=== PATIENT | male | born 1945 | race Caucasian/White ===

== ENCOUNTER 2024-02-12 19:23 | Inpatient (IN) | payer MEDICARE, MEDICAID ==
[~2024-02-12] VITALS: Ht 185.4 cm; Wt 62.8 kg
[2024-02-12] MEDS: KETOROLAC TROMETHAMINE 30 MG/ML VIAL IVP ONE (20:36)
[2024-02-12] MEDS: ONDANSETRON HCL 4 MG/2 ML VIAL IVP ONE (20:36)
[2024-02-12] MEDS: SODIUM CHLORIDE 0.9% 1,000 ML IV ONE (20:36)
[2024-02-12] MEDS: FAMOTIDINE 20 MG/2 ML VIAL IVP ONE (20:36)
[2024-02-12 20:59] LABS: BASOPHILS % (AUTO) 0.6 % (0.0-2.0); EOSINOPHILS % (AUTO) 0.1 % (1.0-6.0); HEMATOCRIT 43.5 % (41-53); HEMOGLOBIN 14.5 g/dL (13.5-17.5); LYMPHOCYTES # (AUTO) 1.4 K/uL (1.0-4.8); LYMPHOCYTES % (AUTO) 7.7 % (22.0-44.0); MEAN CORPUSCULAR HEMOGLOBIN 30.2 pg (26.0-34.0); MEAN CORPUSCULAR HGB CONC 33.3 G/dL (31.0-37.0); MEAN CORPUSCULAR VOLUME 91 fL (80-100); MONOCYTES # (AUTO) 1.3 K/uL (0.1-1.0); MONOCYTES % (AUTO) 7.2 % (2.0-9.0); NEUTROPHILS # (AUTO) 15.4 K/uL (1.8-7.7); NEUTROPHILS % (AUTO) 84.4 % (40.0-70.0); PLATELET COUNT (AUTO) 429 K/uL (150-450); RED CELL DISTRIBUTION WIDTH 13.6 % (11.5-14.5); WHITE BLOOD COUNT (AUTO) 18.3 K/uL (4.5-11.0)
[2024-02-12 21:01] LABS: CALCIUM, TOTAL 9.6 mg/dL (8.8-10.5); CREATININE 1.6 mg/dL (0.60-1.30); POTASSIUM 4.2 mmol/L (3.5-5.1)
[2024-02-12 21:06] LABS: ALANINE AMINOTRANSFERASE 112 U/L (12-78); ALBUMIN 2.7 g/dL (3.4-5.0); ALKALINE PHOSPHATASE 104 U/L (46-116); ASPARTATE AMINOTRANSFERASE 67 U/L (15-37); BILIRUBIN,TOTAL 0.9 mg/dL (0.1-1.0); TOTAL PROTEIN, SERUM 7.8 g/dL (6.4-8.2)
[2024-02-12 21:07] LABS: MAGNESIUM 2.7 mg/dL (1.80-2.40); PHOSPHORUS 4.5 mg/dL (2.5-4.9)
[2024-02-12 21:08] LABS: TROPONIN I-HIGH SENSITIVITY 16 ng/L (<76)
[2024-02-12] MEDS ORDERED: SODIUM CHLORIDE 0.9% 100 ML ONE (21:10)
[2024-02-12] MEDS ORDERED: IOHEXOL 350 MG/ML 100 ML VIAL ONE (21:10)
[2024-02-12 21:17] LABS: B-TYPE NATRIURETIC PEPTIDE 80 pg/mL (0-100)
[2024-02-12 21:17] LABS: COVID AG,FIA SOURCE NASAL SWAB
[2024-02-12] MEDS ORDERED: 0.9% SODIUM CHLORIDE 10 ML SYRINGE IVP PRN (21:30)
[2024-02-12 21:41] LABS: SARS-COV2 (COVID) ANTIGEN,FIA Negative (Negative)
[2024-02-12] MEDS ORDERED: IPRATROPIUM BROMIDE 0.5 MG/2.5 ML NEB SOLUTION NEB PRN (22:00)
[2024-02-12] MEDS ORDERED: ALBUTEROL SULFATE 2.5 MG/0.5 ML NEB SOLUTION NEB PRN (22:00)
[2024-02-12 22:04] LABS: GLUCOSE,RANDOM 157 mg/dL (70-110); LACTATE DEHYDROGENASE 314 U/L (85-227)
[2024-02-12 22:15] LABS: LACTIC ACID 2.8 mmol/L (0.4-2.0)
[2024-02-12] MEDS: ASPIRIN 81 MG CHEWABLE TABLET PO ONE (22:48)
[2024-02-12] MEDS: DILTIAZEM HCL 5 MG/ML 5 ML VIAL IVP ONE (22:48)
[2024-02-12] MEDS: AZITHROMYCIN 500 MG/NS 250 ML IV SCH (22:50)
[2024-02-12] MEDS: SODIUM CHLORIDE 0.9% 500 ML IV ONE (22:50)
[2024-02-12] MEDS: CefTRIAXone 1 GM/DEXTROSE 50 ML IV SCH (22:50)
[2024-02-12 23:08] LABS: APPEARANCE,URINE CLEAR (CLEAR); BILIRUBIN,URINE NEGATIVE (NEGATIVE); COLOR,URINE LIGHT YELLOW (YELLOW); GLUCOSE, URINE (UA) NEGATIVE (NEGATIVE); KETONES,URINE TRACE mg/dL (NEGATIVE); LEUKOCYTE ESTERASE ,URINE NEGATIVE (NEGATIVE); NITRATE,URINE NEGATIVE (NEGATIVE); OCCULT BLOOD,URINE TRACE (NEGATIVE); PROTEIN,URINE NEGATIVE (NEGATIVE); SPECIFIC GRAVITIY, URINE 1.026 (1.003-1.030); UROBILINOGEN,URINE <=1.0 mg/dL (<=1.0)
[2024-02-12 23:09] LABS: CREATININE,URINE RANDOM 59.7 mg/dL (30.0-125.0)
[2024-02-12 23:37] LABS: ALCOHOL, URINE DRUG SCREEN NEGATIVE (NEGATIVE); AMPHET/METH SCREEN,URINE NEGATIVE (NEGATIVE); BARBITURATE SCREEN, URINE NEGATIVE (NEGATIVE); BENZODIAZEPINES SCREEN,URINE NEGATIVE (NEGATIVE); CANNABINOID SCREEN,URINE NEGATIVE (NEGATIVE); COCAINE SCREEN,URINE NEGATIVE (NEGATIVE); METHADONE SCREEN, URINE NEGATIVE (NEGATIVE); OPIATE SCREEN,URINE NEGATIVE (NEGATIVE); PHENCYCLIDINE SCREEN,URINE NEGATIVE (NEGATIVE)
[2024-02-12 23:42] LABS: BACTERIA,URINE Few /HPF (None Seen); HYALINE CASTS, URINE 0-2 /LPF (None Seen); WBC,URINE 0-2 /HPF (0-5)
[2024-02-12] MEDS ORDERED: ONDANSETRON HCL 4 MG/2 ML VIAL IVP PRN (23:45)
[2024-02-12] MEDS ORDERED: ACETAMINOPHEN 325 MG TABLET PO PRN (23:45)
[2024-02-13] MEDS ORDERED: ACETYLCYSTEINE 20% 200 MG/ML 4 ML ORAL SOLUTION PO SCH
[2024-02-13] MEDS: *CLINICAL-LEVOFLOXACIN IVPB DOSING CLINICAL ONE (00:18)
[2024-02-13 03:08] VITALS: BP 130/72; PULSE 66; RESP 20
[2024-02-13 03:46] VITALS: BP 104/55; PULSE 61; RESP 19; TEMP 98.3
[2024-02-13] MEDS ORDERED: SODIUM CHLORIDE 0.9% 250 ML IV ONE (05:41)
[2024-02-13] MEDS: LEVOFLOXACIN 500 MG/D5% WATER 100 ML IV ONE (05:48)
[2024-02-13] MEDS: ACETYLCYSTEINE 20% 200 MG/ML 4 ML ORAL SOLUTION PO SCH ×2 (05:49→20:50)
[2024-02-13] MEDS: HEPARIN SODIUM,PORCINE 5,000 UNITS/ML VIAL SQ SCH (05:49)
[2024-02-13 07:17] LABS: BASOPHILS % (AUTO) 0.2 % (0.0-2.0); EOSINOPHILS % (AUTO) 1.9 % (1.0-6.0); HEMATOCRIT 38.8 % (41-53); HEMOGLOBIN 12.8 g/dL (13.5-17.5); LYMPHOCYTES # (AUTO) 2.1 K/uL (1.0-4.8); LYMPHOCYTES % (AUTO) 14.7 % (22.0-44.0); MEAN CORPUSCULAR HEMOGLOBIN 30.4 pg (26.0-34.0); MEAN CORPUSCULAR HGB CONC 33.1 G/dL (31.0-37.0); MEAN CORPUSCULAR VOLUME 92 fL (80-100); MONOCYTES # (AUTO) 1.4 K/uL (0.1-1.0); MONOCYTES % (AUTO) 9.7 % (2.0-9.0); NEUTROPHILS # (AUTO) 10.3 K/uL (1.8-7.7); NEUTROPHILS % (AUTO) 73.5 % (40.0-70.0); PLATELET COUNT (AUTO) 382 K/uL (150-450); RED BLOOD CELL COUNT(AUTO) 4.21 MIL/uL (4.50-5.90); RED CELL DISTRIBUTION WIDTH 13.2 % (11.5-14.5)
[2024-02-13 07:20] VITALS: BP 103/65; PULSE 87; RESP 18; TEMP 98.1
[2024-02-13 07:31] LABS: CREATININE 1.27 mg/dL (0.60-1.30); MAGNESIUM 2.5 mg/dL (1.80-2.40); POTASSIUM 3.8 mmol/L (3.5-5.1)
[2024-02-13] MEDS: DOCUSATE SODIUM 100 MG CAPSULE PO SCH (09:00)
[2024-02-13] MEDS: METOPROLOL TARTRATE 25 MG TABLET PO SCH (09:01)
[2024-02-13] MEDS: ASPIRIN 81 MG CHEWABLE TABLET PO SCH (09:02)
[2024-02-13 11:34] VITALS: BP 120/61; PULSE 71; RESP 18; TEMP 97.9
[2024-02-13 15:45] VITALS: BP 126/73; PULSE 75; RESP 18; TEMP 98.1
[2024-02-13 20:28] VITALS: BP 144/76; PULSE 80; RESP 18; TEMP 98.7
[2024-02-13 21:49] LABS: C.DIFF GDH ANTIGEN, Stool Negative (Negative)
[2024-02-13 21:50] LABS: C.DIFF TOXINS A&B, Stool Negative (Negative)
[2024-02-14] VITALS (7 sets, daily range): BP systolic 109–144; BP diastolic 49–79; PULSE 64–77; RESP 18; TEMP 97.7–98.2
[2024-02-14] MEDS ORDERED: LEVOFLOXACIN 250 MG/D5% WATER 50 ML IV SCH (01:00)
[2024-02-14] MEDS: LEVOFLOXACIN 750 MG/D5% WATER 150 ML IV SCH (01:20)
[2024-02-14] MEDS: METOPROLOL TARTRATE 5 MG/5 ML VIAL IVP ONE (03:55)
[2024-02-14 07:27] LABS: TROPONIN I-HIGH SENSITIVITY 21 ng/L (<76)
[2024-02-14] MEDS: APIXABAN 5 MG TABLET PO SCH (08:39)
[2024-02-14] MEDS: PANTOPRAZOLE SODIUM 40 MG DR TABLET PO SCH (12:43)
[2024-02-15] VITALS: BP 122/61; PULSE 62; RESP 1; TEMP 98.2
[2024-02-15 04:00] VITALS: BP 130/67; PULSE 68; RESP 20; TEMP 98.2
[2024-02-15 07:09] LABS: BASOPHILS % (AUTO) 0.4 % (0.0-2.0); LYMPHOCYTES # (AUTO) 1.4 K/uL (1.0-4.8); LYMPHOCYTES % (AUTO) 11.9 % (22.0-44.0); MEAN CORPUSCULAR HEMOGLOBIN 30.7 pg (26.0-34.0); MEAN CORPUSCULAR HGB CONC 33.3 G/dL (31.0-37.0); MEAN CORPUSCULAR VOLUME 92 fL (80-100); MONOCYTES # (AUTO) 0.8 K/uL (0.1-1.0); MONOCYTES % (AUTO) 7.2 % (2.0-9.0); NEUTROPHILS # (AUTO) 9.1 K/uL (1.8-7.7); NEUTROPHILS % (AUTO) 79.5 % (40.0-70.0); PLATELET COUNT (AUTO) 439 K/uL (150-450); RED BLOOD CELL COUNT(AUTO) 4.22 MIL/uL (4.50-5.90); RED CELL DISTRIBUTION WIDTH 13.8 % (11.5-14.5); WHITE BLOOD COUNT (AUTO) 11.5 K/uL (4.5-11.0)
[2024-02-15 07:17] LABS: ANION GAP 10 mmol/L (8-16); CALCIUM, TOTAL 8.4 mg/dL (8.8-10.5); CARBON DIOXIDE 28 mmol/L (22-29); CHLORIDE 100 mmol/L (98-107); GLOMERULAR FILTR. RATE CALC > 60 mL/min (>60); GLUCOSE,RANDOM 112 mg/dL (70-110); POTASSIUM 3.7 mmol/L (3.5-5.1); SODIUM SERUM 138 mmol/L (136-145); UREA NITROGEN, BLOOD 19 mg/dL (7-18)
[2024-02-15 08:14] VITALS: BP 132/66; PULSE 73; RESP 18; TEMP 97.5
[2024-02-15] MEDS ORDERED: APIX5TAB PO (11:32)
[2024-02-15] MEDS ORDERED: METO25 PO (11:32)
[2024-02-15] MEDS ORDERED: LEVO750T68 PO (11:41)
== END 2024-02-15 14:20 | disposition home or self-care (01) | DRG 720 ==
LOC: EMS 19:36 → EDH 02-13 00:05 → 5S 02-13 01:20
PROVIDERS: ADMIT Internal Medicine; ATTEND Internal Medicine
DX: A41.9 Sepsis, unspecified organism (principal); J96.01 Acute respiratory failure with hypoxia; N17.9 Acute kidney failure, unspecified; E43 Unspecified severe protein-calorie malnutrition; J47.0 Bronchiectasis with acute lower respiratory infection; J18.9 Pneumonia, unspecified organism; I48.92 Unspecified atrial flutter; I50.9 Heart failure, unspecified; K21.9 Gastro-esophageal reflux disease without esophagitis; D64.9 Anemia, unspecified; I48.0 Paroxysmal atrial fibrillation; Z68.1 Body mass index [BMI] 19.9 or less, adult; K52.9 Noninfective gastroenteritis and colitis, unspecified; Z20.822 Contact with and (suspected) exposure to COVID-19; K57.30 Diverticulosis of large intestine without perforation or abscess without bleeding; N18.9 Chronic kidney disease, unspecified; J40 Bronchitis, not specified as acute or chronic; Z86.16 Personal history of COVID-19; Z88.0 Allergy status to penicillin; Z79.01 Long term (current) use of anticoagulants
CPT/HCPCS: 71045; 71275; 74177; 76705; 80048; 80076; 80307; 81001; 82570; 82947; 83036; 83605; 83615; 83690; 83735; 83880; 84100; 84145; 84300; 84443; 84484; 85025; 85730; 87040; 87324; 87449; 93005; 93306; 99285; G0378; J0456; J0696; J1644; J1885; J1956; J2405; J3490; J7040; J7050; 36415-L1; 36415-TC